=== PATIENT | female | born 1945 | race Caucasian/White ===

== ENCOUNTER 2019-01-29 00:21 | Outpatient (CLI) | payer MEDICARE, MEDICAID, SELFPAY ==
--- NOTE | 2019-01-29 09:30 | MERGEMPI_ITS ---
*[facility]* *[facility]* [address] [place] [address] Myocardial Perfusion Imaging - SPECT Ailyn protocol Date of study: 01/29/2019 *PATIENT PRESENTATION* Height: 157.5cm (62in) Blood Pressure: Weight: 72.7kg (160lb) BSA: 1.81m^2 Referring physician: Pan Rodriguez MD Ordering physician: Jeanna Salmeron Impressions: Normal perfusion by Tc99m Sestamibi Imaging. Summary: 1. Myocardial perfusion imaging: No myocardial perfusion defects noted. 2. The calculated left ventricular ejection fraction after stress: 55%. LV global systolic function is normal. No left ventricular regional motion abnormality. Indication: R07.9. History: REASON FOR TESTING: PATIENT TESTING TODAY FOR FURTHER RISK STRATIFICATION. PATIENT REPORTS ONE MONTH OF INTERMITENT SHARP LEFT ARM PAIN/HEAVYNESS THAT CAN HAPPEN BOTH AT REST OR WITH ACTIVITY AT ANYTIME OF DAY OR NIGHT. SHE STATES DISCOMFORT LASTS FROM 1-3 MINUTES AND COMES AND GOES UNTIL IT DECIDES TO GO AWAY. PATIENT DENIES CHEST/LEFT ARM PAIN UPON ARRIVAL TO TESTING TODAY. SIGNIFICANT PAST MEDICAL HISTORY: CARDIAC CATHERIZATION 10/07 WITH 2 STENTS, ABNORMAL LIVER TESTS. PATIENT ANEMIC AND IS CURRENTLY HAVING 5 WEEKLY INFUSIONS OF IRON--NEXT WEEK WILL BE HER SECOND IRON INFUSION. SMOKING STATUS: NEVER EXERCISE ROUTINE: DAILY ADL'S. Risk factors: Family history of coronary artery disease. Hypertension. Diabetes mellitus. Dyslipidemia. ALLERGIES: PERCOCET, PRILOSEC, SULFA, VICODIN. MEDICATIONS: ATORVASTATIN 20 MG DAILY, NORVASC 10 MG DAILY, LISINOPRIL/HYDROCHLOROTHIAZIDE 20/12.5 MG, ONDANSETRON 4 MG PRN, ISOSORBIDE MONONITRATE ER 30 MG, METOPROLOL SUCCINATE ER 150 MG DAILY, SIMVASTATIN 10 MG DAILY, TRIAMCINOLONE CREAM 1% PRN, NITROSTAT 0.4 MG PRN, DICYCLOMINE 20 MG PRN, ESOMEPRAZOLE 40 MG BID, IBUPROFEN 600 MG BID, BASAGLAR INSULIN PEN 86 UNITS DAILY, TOUJEO INSULIN 80 UNITS DAILY. Imaging Technique: Protocol: Ailyn protocol. Acquisition: Gated SPECT; 1 day - rest/stress. The patient was imaged in the supine position. Attenuation correction used. Isotope administration: - Rest. Tc[99m]-sestamibi. Dose: 9.6mCi. Injection time: 10:35 AM. Injection to stress time: 00:45. - Stress. Tc[99m]-sestamibi. Dose: 30mCi. Injection time: 11:50 AM. 1-2 min before end of exercise Baseline ECG: SINUS BRADYCARDIA/FIRST DEGREE HEART BLOCK. HR 46 BPM. Stress protocol: +--------+--+ + + !Stage !HR!BP (mmHg) !Comments ! +--------+--+ + + !Baseline!46!142/74 (97) ! ! +--------+--+ + + !1 min !66!130/80 (97) !Inject Regadenoson.! +--------+--+ + + !3 min !66!140/80 (100)! ! +--------+--+ + + !6 min !63!140/80 (100)! ! +--------+--+ + + !1 min !--! !Inject Regadenoson.! +--------+--+ + + * Stress results: UNABLE TO DO AILYN PROTOCOL WALKING STRESS TEST PATIENT TOOK HER METOPROLOL SUCCINATE ER 150 MG AT 1900 LAST NIGHT. STRESS TEST ENDED IN 6 MINUTES 51 SECONDS. NORMAL HEART RATE AND BLOOD PRESSURE RESPONSE TO LEXISCAN INJECTION. OCCASIONAL PAC'S NOTED. NO ANGINA. NO SIGNIFICANT ST SEGMENT CHANGES. The rate-pressure product for the peak heart rate and blood pressure was 9240mm Hg/min. Myocardial perfusion: Imaging information: gated. Left ventricular size is normal. Right ventricular size is normal. No myocardial perfusion defects noted. Ventricular Function (Wall Motion): The calculated left ventricular ejection fraction after stress: 55%. LV global systolic function is normal. No left ventricular regional motion abnormality. Right ventricular function is normal. Study data: Pan Rodriguez MD supervised and was readily available during the procedure. This study was interpreted by [facility]. Study status: Routine. Consent: The risks, benefits, and alternatives to the procedure were explained to the patient and informed consent was obtained. Procedure: Initial setup. A baseline ECG was recorded. Surface ECG leads and manual cuff blood pressure measurements were monitored. Heart sounds: Normal. Lung sounds: Normal. Treadmill exercise testing was performed using the Ailyn protocol. Study completion: All catheters inserted during the procedure were removed. The patient tolerated the procedure well and was discharged from the lab. Discharge: The patient left the laboratory in stable condition. Birthdate: Patient birthdate: 1945. Sex: Gender: female. Study date: Study date: 01/29/2019. Study time: 00:01 AM. Electronically signed by Pan Rodriguez MD 01/29/2019 17:57
[2019-01-29] MEDS: Regadenoson 0.4 MG/5 ML SYR IVP (11:48)
== END 2019-01-29 00:41 ==
PROVIDERS: PCP Internal Medicine; Visit Provider Internal Medicine
DX: R07.9 Chest pain, unspecified (principal); M79.622 Pain in left upper arm; Z95.5 Presence of coronary angioplasty implant and graft; D50.9 Iron deficiency anemia, unspecified
CPT/HCPCS: 78452; 93016; 93018; 93017; J2785